=== PATIENT | female | born 1950 | race Caucasian/White ===

== ENCOUNTER 2017-09-19 13:35 | Emergency (ER) | END 2017-09-19 15:21 | disposition home or self-care (01) ==

== ENCOUNTER 2018-06-25 07:03 | Emergency (ER) | payer OTHER ==
[~2018-06-25] VITALS: Ht 157.5 cm; Wt 80.5 kg
[~2018-06-25 07:03] MED LIST: ACET500C5 PO; CEPH500C PO; DOCU-144 PO
[2018-06-25 07:06] VITALS: Ht 157.5 cm; Wt 80.5 kg
[2018-06-25] MEDS ORDERED: CEFTRIAXONE 1 GM/50 ML (PMX) 50 ML IVPB STA (07:30)
[2018-06-25] MEDS ORDERED: SODIUM CHLORIDE 0.9% 1L BAG IV* STA (07:30)
--- NOTE | 2018-06-25 07:36 | ERD ---
ER Documentation Chief Complaint Chief Complaint abdominal pain x 3 days, vomiting, and fever HPI 67-year-old female history of hypertension, hyperlipidemia, osteoarthritis and gastritis presents to the ED complaining of a 3-week history of abdominal pain and 5-day history of fevers. Patient was in her usual state of health until 3 weeks ago when she began developing mild, pressure-like, nonradiating suprapubic and left lower quadrant pain with pressure on urinating but no dysuria, polyuria, hematuria or flank pain. 5 days ago began developing fevers which are worse at night with reductive cough and body aches. Nausea with multiple episodes of nonbloody, nonbilious emesis since yesterday. No hematemesis, hematochezia or melena. Denies shortness of breath, chest pain or palpitations. No headache, neck or back pain. No relieving or exacerbating factors. ROS All systems reviewed and are negative except as per history of present illness. Medications Home Meds Active Scripts Amoxicillin/Potassium Clav (Amox-Clav 875-125 mg Tablet) 875-125 mg Tab, 1 TAB PO BID for 10 Days, #20 TAB Prov:LEWIS ROMERO MD 06/25/18 Acetaminophen* (Tylophen*) 500 Mg Capsule, 1 CAP PO Q6H PRN for PAIN AND OR ELEVATED TEMP, #15 CAP Prov:NADER MANZANO MD 09/19/17 Cephalexin* (Cephalexin*) 500 Mg Capsule, 500 MG PO Q6 for 5 Days, #20 CAP Prov:NADER MANZANO MD 09/19/17 Docusate Sodium* (Colace*) 100 Mg Capsule, 100 MG PO BID, #30 CAP Prov:NADER MANZANO MD 09/19/17 Allergies Allergies: Coded Allergies: No Known Allergy (Unverified , 09/22/13) PMhx/Soc History of Surgery: Yes (CERVICAL SX,HYSTERECTOMY , R HIP SX, LEFT KNEE SX) Anesthesia Reaction: No Hx Neurological Disorder: No Hx Respiratory Disorders: No Hx Cardiac Disorders: Yes (Hypertension) Hx Psychiatric Problems: No Hx Miscellaneous Medical Probl: Yes (Arthritis, gastritis, hyperlipidemia) Hx Alcohol Use: No Hx Substance Use: No Hx Tobacco Use: No FmHx No cancer, stroke or diabetes Physical Exam Vitals Vital Signs Date Temp Pulse Resp B/P (MAP) Pulse Ox O2 O2 Flow FiO2 Time Delivery Rate 06/25/18 98.1 85 18 130/65 99 Room Air 10:17 (86) 06/25/18 102.4 92 16 206/93 96 07:06 (130) Physical Exam Const: Moderate distress. Head: Atraumatic Eyes: Normal Conjunctiva ENT: Normal External Ears, Nose and Mouth. Pharynx is clear without erythema or exudate. Neck: Full range of motion. No meningismus. Resp: Breath sounds are equal and clear to auscultation bilaterally Cardio: Tachycardic, regular rate and rhythm, no murmurs Abd: Soft, mild left lower quadrant tenderness but no rebound or guarding. Non distended. Normal bowel sounds Skin: No petechiae or rashes Back: No midline or flank tenderness Ext: No cyanosis, or edema Neur: Awake and alert. No focal deficit Psych: Normal Mood and Affect Result Diagram: 06/25/18 0742 06/25/18 0742 Results 24 hrs Laboratory Tests Test 06/25/18 07:42 06/25/18 07:44 White Blood Count 9.0 10^3/ul Red Blood Count 3.97 10^6/ul Hemoglobin 11.4 g/dl Hematocrit 35.1 % Mean Corpuscular Volume 88.4 fl Mean Corpuscular Hemoglobin 28.7 pg Mean Corpuscular Hemoglobin Concent 32.5 g/dl Red Cell Distribution Width 13.1 % Platelet Count 237 10^3/UL Mean Platelet Volume 10.4 fl Immature Granulocytes % 0.300 % Neutrophils % 73.9 % Lymphocytes % 19.5 % Monocytes % 5.1 % Eosinophils % 0.8 % Basophils % 0.4 % Nucleated Red Blood Cells % 0.0 /100WBC Immature Granulocytes # 0.030 10^3/ul Neutrophils # 6.6 10^3/ul Lymphocytes # 1.8 10^3/ul Monocytes # 0.5 10^3/ul Eosinophils # 0.1 10^3/ul Basophils # 0.0 10^3/ul Nucleated Red Blood Cells # 0.0 10^3/ul Prothrombin Time 12.3 Sec Prothrombin Time Ratio 1.0 INR International Normalized Ratio 0.90 Activated Partial Thromboplast Time 28.8 Sec Urine Color JARON Urine Clarity CLOUDY Urine pH 5.0 Urine Specific [place] 1.021 Urine Ketones NEGATIVE mg/dL Urine Nitrite NEGATIVE mg/dL Urine Bilirubin NEGATIVE mg/dL Urine Urobilinogen 2+ mg/dL Urine Leukocyte Esterase TRACE Joe/ul Urine Microscopic RBC 12 /HPF Urine Microscopic WBC 38 /HPF Urine Squamous Epithelial Cells MODERATE /HPF Urine Bacteria FEW /HPF Urine Mucus FEW /HPF Urine Hemoglobin 1+ mg/dL Urine Glucose NEGATIVE mg/dL Urine Total Protein 2+ mg/dl Sodium Level 143 mmol/L Potassium Level 3.7 mmol/L Chloride Level 105 mmol/L Carbon Dioxide Level 27 mmol/L Anion Gap 11 Blood Urea Nitrogen 10 mg/dl Creatinine 0.48 mg/dl Est Glomerular Filtrat Rate mL/min > 60 mL/min Glucose Level 138 mg/dl Calcium Level 9.3 mg/dl Total Bilirubin 0.7 mg/dl Direct Bilirubin 0.00 mg/dl Indirect Bilirubin 0.7 mg/dl Aspartate Amino Transf (AST/SGOT) 36 IU/L Alanine Aminotransferase (ALT/SGPT) 35 IU/L Alkaline Phosphatase 162 IU/L Troponin I < 0.012 ng/ml Total Protein 7.8 g/dl Albumin 4.2 g/dl Globulin 3.60 g/dl Albumin/Globulin Ratio 1.16 Lactic Acid Level 1.6 mmol/L Current Medications Medications Dose Sig/Jose Miguel Start Time Status Last (Trade) Ordered Route PRN Stop Time Admin Dose Reason Admin Sodium 2,420 ml BOLUS OVER 2 06/25/18 DC 06/25/18 Chloride HOURS STAT 07:30 07:56 (NS) IV* 06/25/18 07:33 Ceftriaxone 50 ml @ ONCE STAT 06/25/18 DC 06/25/18 Sodium 100 mls/hr IVPB 07:30 07:56 06/25/18 07:59 IV Flush 10 ml STK-MED 06/25/18 DC 06/25/18 (NS 10 ml) ONCE .ROUTE 08:55 09:22 06/25/18 08:56 Sodium 100 ml @ ud STK-MED 06/25/18 DC 06/25/18 Chloride ONCE .ROUTE 08:55 09:22 06/25/18 08:56 Iohexol 150 ml STK-MED 06/25/18 DC 06/25/18 (Omnipaque ONCE .ROUTE 08:55 09:23 300mg/ ml) 06/25/18 08:56 Procedures/MDM DOCUMENTS REVIEWED: ED nurse, prior records EKG: Time: 07:52. Sinus rhythm. Ventricular rate 85. No ectopy. Normal MA QRS. Nonspecific T wave changes. Right axis deviation. My Interpretation IMAGING: Chest AP portable: Mild cardiomegaly. Costophrenic angles are clear. No effusions or infiltrates. No mediastinal widening. My interpretation. PROCEDURE: CT abdomen and pelvis with contrast. CLINICAL INDICATION: Left lower quadrant abdominal pain TECHNIQUE: CT scan of the abdomen and pelvis without oral contrast was performed and is reconstructed at 2.5 mm contiguous axial intervals from the dome of the diaphragm to the inferior pubic rami.. The patient was scanned with intravenous contrast. Sagittal and coronal reformatted images were obtained from the axial source images. The calculated radiation dose measures 1102 mGy centimeters. The CTDI measures 19 mGy. Individualized dose optimization technique was used for the performance of this exam. This included 1. Automated exposure control. 2. Adjustment of the mA and / or kV according to the patient's size. 3. Use of iterative reconstructed technique. COMPARISON: CT abdomen pelvis September 19, 2017 FINDINGS: The lung bases are clear of any infiltrate or nodule. No effusion is seen. There is a hiatal hernia. The liver is of normal size, contour and attenuation with no mass or ductal dilatation. No gallstones are visualized. No splenic, adrenal or pancreatic abnormalities present. Kidneys enhance symmetrically and are of normal size and contour. No hydronephrosis, calculus or masses seen. Ureters are of normal course and caliber with no stone. No bladder mass or stone is present. Uterus is been removed. No adnexal masses seen. There is no aneurysm. No adenopathy is present. No bowel mass or obstruction is present. The appendix is normal. Scattered colonic diverticula are present. No phlegmon, ascites or pneumoperitoneum is visualized. Patient is status post right hip replacement. There is mild rotary levoscoliosis of the mid lumbar spine. IMPRESSION: No evidence of urolithiasis, obstructive uropathy, diverticulitis or appendicitis. Diverticulosis. Hiatal hernia. Status post right hip replacement. Rotary levoscoliosis lumbar spine. .David Grissom MD, MD Date Time Electronically viewed and signed by .David Grissom MD, MD on 06/25/2018 09:23 REEXAMINATION/REEVALUATION: Time: 10:30. Doing well. Tolerating POs. MEDICAL DECISION MAKIN-year-old female history of hypertension, hyperlipidemia, osteoarthritis and gastritis presents to the ED complaining of a 3-week history of abdominal pain and 5-day history of fevers. CBC reveals mild anemia but no leukocytosis or thrombocytopenia. Chemistry is negative for electrolyte abnormalities, renal insufficiency or hyperglycemia. Lactate is 1.6 mmol/L. Urinalysis significant for pyuria and a culture is pending. EKG reveals no evidence of ischemia or dysrhythmia. Troponin is negative. Chest x- ray reveals borderline cardiomegaly but no pneumonia or congestive heart failure. CT of the abdomen pelvis significant for hiatal hernia and divertic ulosis but no diverticulitis, appendicitis, bowel obstruction, mass, ascites or colitis. Multiple criteria for systemic inflammatory response syndrome including fever and tachycardia. Normal saline 30 cc/kg fluid boluses given and broad-spectrum antibiotics after cultures. No elevated lactate or criteria for severe sepsis or septic shock. Urinary tract infection but no CVA tenderness or pyelonephritis. Pain resolved, tolerating PO's. Stable for discharge with Augmentin, pending urine culture, antipyretics, precautionary instructions and outpatient follow-up as counseled. Counseled patient and family regarding diagnosis, diagnostic results and need for follow-up Departure Diagnosis: Primary Impression: Fever Fever type: unspecified Qualified Codes: R50.9 - Fever, unspecified Additional Impressions: Nonspecific syndrome suggestive of viral illness UTI (urinary tract infection) Urinary tract infection type: acute cystitis Hematuria presence: with hematuria Qualified Codes: N30.01 - Acute cystitis with hematuria Acute abdominal pain in left lower quadrant Condition: Stable LEWIS ROMERO MD Jun 25, 2018 07:36
[2018-06-25] MEDS ORDERED: SOD CHLORIDE 0.9% 100 ML ONE (08:55)
[2018-06-25] MEDS ORDERED: IOHEXOL 300MG/ML 150 ML BTL ONE (08:55)
[2018-06-25 10:17] VITALS: BP 130/65; PULSE 85; RESP 18
[2018-06-25] MEDS ORDERED: AMOX1TAB10 PO (10:37)
== END 2018-06-25 11:05 | disposition home or self-care (01) ==
LOC: E/R 07:03
DX: N30.01 Acute cystitis with hematuria (principal); I10 Essential (primary) hypertension
CPT/HCPCS: 36415; 71045; 74177; 80053; 81001; 83605; 84484; 85025; 85610; 85730; 87040; 87086; 87400; 93005; 96374; J0696; J7030; Q9967; Z7502; Z7610

== ENCOUNTER 2018-10-08 02:57 | Emergency (ER) | payer OTHER ==
[~2018-10-08] VITALS: Ht 152.4 cm; Wt 85.0 kg
[~2018-10-08 02:57] MED LIST changes: +AMOX1TAB10 PO
[2018-10-08 02:58] VITALS: Ht 152.4 cm; Wt 85.0 kg
[2018-10-08] MEDS ORDERED: OMEP20CA16 PO (04:08)
[2018-10-08] MEDS ORDERED: LISI10TA2 PO (04:08)
[2018-10-08] MEDS ORDERED: CHOL200056 PO (04:08)
[2018-10-08] MEDS ORDERED: ATOR40TA68 PO (04:08)
[2018-10-08] MEDS ORDERED: ONDANSETRON 4 MG INJ IV ONE (04:30)
[2018-10-08] MEDS ORDERED: morphine 4 MG/ML VIAL IV ONE (04:30)
[2018-10-08] MEDS ORDERED: IOHEXOL 300MG/ML 150 ML BTL ONE (05:25)
[2018-10-08] MEDS ORDERED: SOD CHLORIDE 0.9% 100 ML ONE (05:25)
[2018-10-08] MEDS ORDERED: IBUP-1542 PO (07:08)
--- NOTE | 2018-10-08 07:08 | ERD ---
ER Documentation Chief Complaint Chief Complaint MECHANICAL TRIP AND FALL DOWN STAIRS. HIT HEAD, HEMATOMA NOTED. HPI This is a 68-year-old female with a past medical history of hypertension, hyperlipidemia, GERD, polio in the past with chronic left leg deformity who presents after falling down a flight of stairs. The patient reportedly missed the first step and fell down approximately 14 subsequent steps. She landed on her left side and sustained bruises and hematomas to the left arm and left leg. She also hit her head and sustained a large hematoma to the right forehead. The patient does endorse a dull aching soreness to all of these regions. She is able to range all extremities fully without any significant pain. She did not lose consciousness. She denies any neck or back pain. She denies any chest pain or trouble breathing. She denies abdominal pain. The patient is ambulatory without significant difficulty. She denies saddle anesthesia. She denies incontinence or retention of urine or stool. She denies any focal deficits. She denies weakness or numbness or tingling to the face or extremities. ROS All systems reviewed and are negative except as per history of present illness. Medications Home Meds Active Scripts Acetaminophen* (Tylophen*) 500 Mg Capsule, 1 CAP PO Q6H PRN for PAIN AND OR ELEVATED TEMP, #15 CAP Prov:NADER MANZANO MD 09/19/17 Reported Medications Cholecalciferol (Vitamin D3) (Vitamin D-3) 2,000 Unit Tablet, 2000 UNIT PO DAILY for 90 Days, #90 10/08/18 Omeprazole* (Omeprazole*) 20 Mg Capsule.dr, 20 MG PO BID for 90 Days, #180 10/08/18 Atorvastatin* (Atorvastatin*) 40 Mg Tablet, 40 MG PO QHS for 90 Days, #90 10/08/18 Lisinopril* (Lisinopril*) 10 Mg Tablet, 10 MG PO DAILY for 60 Days, #60 10/08/18 Discontinued Scripts Amoxicillin/Potassium Clav (Amox-Clav 875-125 mg Tablet) 875-125 mg Tab, 1 TAB PO BID for 10 Days, #20 TAB Prov:LEWIS ROMERO MD 06/25/18 Cephalexin* (Cephalexin*) 500 Mg Capsule, 500 MG PO Q6 for 5 Days, #20 CAP Prov:NADER MANZANO MD 09/19/17 Docusate Sodium* (Colace*) 100 Mg Capsule, 100 MG PO BID, #30 CAP Prov:NADER MANZANO MD 09/19/17 Allergies Allergies: Coded Allergies: No Known Allergy (Unverified , 10/08/18) PMhx/Soc History of Surgery: Yes (CERVICAL SX,HYSTERECTOMY , R HIP SX, LEFT KNEE SX) Anesthesia Reaction: No Hx Neurological Disorder: No Hx Respiratory Disorders: No Hx Cardiac Disorders: Yes (Hypertension) Hx Psychiatric Problems: No Hx Miscellaneous Medical Probl: Yes (Arthritis, gastritis, hyperlipidemia) Hx Alcohol Use: No Hx Substance Use: No Hx Tobacco Use: No Smoking Status: Never smoker FmHx Family History: No diabetes Physical Exam Vitals Vital Signs Date Temp Pulse Resp B/P (MAP) Pulse Ox O2 O2 Flow FiO2 Time Delivery Rate 10/08/18 98.9 66 16 160/91 97 Room Air 06:30 (114) 10/08/18 66 14 146/85 97 Room Air 06:00 (105) 10/08/18 65 16 153/90 97 Room Air 04:00 (111) 10/08/18 98.9 70 16 165/87 95 02:58 (113) Physical Exam Const: No apparent distress, well-developed, well-nourished Head: Normocephalic, no anglin sign. Right forehead hematoma and ecchymoses. Eyes: Normal Conjunctiva. Extraocular movements intact. Pupils equal, round and reactive to light. No raccoon eyes. ENT: Normal External Ears, Nose and Mouth. No hemotympanum. Neck: No midline spinal tenderness. No step-offs or deformities. Full range of motion. No meningismus. Resp: Clear to auscultation bilaterally, No wheezes, rales or rhonchi Cardio: Regular rate and rhythm. No murmurs, rubs or gallops Abd: Soft, non tender, non distended. Normal bowel sounds Skin: No petechiae or rashes Back: No midline tenderness. No step-offs or deformities. No CVA tenderness Ext: No cyanosis, or edema. Hematoma to the left forearm and left lower leg. Neur: Awake and alert, oriented 4. Cranial nerves intact. No facial droop. Normal strength, sensation and coordination. Psych: Normal Mood and Affect Result Diagram: 10/08/18 0435 10/08/18 0435 Results 24 hrs Laboratory Tests Test 10/08/18 04:35 White Blood Count 10.0 10^3/ul Red Blood Count 3.98 10^6/ul Hemoglobin 11.5 g/dl Hematocrit 34.7 % Mean Corpuscular Volume 87.2 fl Mean Corpuscular Hemoglobin 28.9 pg Mean Corpuscular Hemoglobin Concent 33.1 g/dl Red Cell Distribution Width 12.8 % Platelet Count 237 10^3/UL Mean Platelet Volume 10.2 fl Immature Granulocytes % 0.300 % Neutrophils % 66.9 % Lymphocytes % 23.3 % Monocytes % 5.8 % Eosinophils % 3.1 % Basophils % 0.6 % Nucleated Red Blood Cells % 0.0 /100WBC Immature Granulocytes # 0.030 10^3/ul Neutrophils # 6.7 10^3/ul Lymphocytes # 2.3 10^3/ul Monocytes # 0.6 10^3/ul Eosinophils # 0.3 10^3/ul Basophils # 0.1 10^3/ul Nucleated Red Blood Cells # 0.0 10^3/ul Prothrombin Time 12.3 Sec Prothrombin Time Ratio 1.0 INR International Normalized Ratio 0.90 Activated Partial Thromboplast Time 27.2 Sec Sodium Level 143 mmol/L Potassium Level 4.2 mmol/L Chloride Level 108 mmol/L Carbon Dioxide Level 25 mmol/L Anion Gap 10 Blood Urea Nitrogen 18 mg/dl Creatinine 0.51 mg/dl Est Glomerular Filtrat Rate mL/min > 60 mL/min Glucose Level 145 mg/dl Calcium Level 9.1 mg/dl Ethyl Alcohol Level < 10.0 mg/dl Current Medications Medications Dose Sig/Jose Miguel Start Time Status Last (Trade) Ordered Route PRN Stop Time Admin Dose Reason Admin Morphine 4 mg ONCE ONCE 10/08/18 DC 10/08/18 Sulfate IV 04:30 10/08/18 04:51 (morphine) 04:31 Ondansetron 4 mg ONCE ONCE 10/08/18 DC 10/08/18 HCl (Zofran IV 04:30 10/08/18 04:51 Inj) 04:31 IV Flush 10 ml STK-MED 10/08/18 DC 10/08/18 (NS 10 ml) ONCE .ROUTE 05:25 10/08/18 05:39 05:26 Sodium 100 ml @ ud STK-MED 10/08/18 DC 10/08/18 Chloride ONCE .ROUTE 05:25 10/08/18 05:41 05:26 Iohexol 150 ml STK-MED 10/08/18 DC 10/08/18 (Omnipaque ONCE .ROUTE 05:25 10/08/18 05:41 300mg/ ml) 05:26 Procedures/[facility] The patient's presentation warrants further investigation. Previous medical records, if available, were reviewed. LABS The patient's laboratory testing was obtained and reviewed. No emergent treatment was required unless described below. CBC: Normocytic anemia, not emergent. No E/o systemic infection or thrombocytopenia Chemistry: No E/o severe acidosis or alkalosis or renal failure or diabetic ketoacidosis PT/INR: No E/o significant coagulopathy Tox: No E/o alcohol abuse. IMAGING Imaging and Radiology interpretation reviewed. CT Head FINDINGS: Mild motion related artifact. Anterior right frontal scalp soft tissue hematoma. No acute intracranial hemorrhage or extraaxial fluid collection is seen. There is no midline shift or mass effect. Bloom-white delineation is maintained. No identifiable acute or recent territorial infarct. Ventricular size and configuration are within normal limits. Partial opacification of the left sphenoid sinus, including mucosal thickening and small air-fluid level along with mild osseous sclerosis. Remaining visualized paranasal sinuses and mastoid air cells are clear. Intact calvarium. Of incidental note are two small round smoothly marginated ossific densities along the outer table of the left frontal calvarium at the vertex, suggesting the presence of osteomas, measuring up to 10 mm in diameter. IMPRESSION: Anterior right frontal scalp soft tissue hematoma. No acute int racranial sequela from trauma is seen at this time. Left sphenoid sinus disease including air-fluid level along with osseous sclerosis, which may be of mixed chronicity. This exam could serve as a baseline for follow up after treatment. Electronically viewed and signed by Pete Pandey Physician on 10/08/2018 05:49 CT C-Spine FINDINGS: There is straightened lordosis of the cervical spine compatible with muscular spasm or sprain. No prevertebral soft tissue swelling is present. No vertebral body subluxation is seen. No fracture is evident. C2-3: The disc is normal in height. No significant disk bulge or protrusion is evident. There is no central canal stenosis or foraminal narrowing. C3-4: The disc is normal in height. No significant disk bulge or protrusion is evident. There is no central canal stenosis or foraminal narrowing. C4-5: The disc is normal in height. No significant disk bulge or protrusion is evident. There is no central canal stenosis or foraminal narrowing. C5-6: There is moderate loss of height of the disc. No significant disk bulge or protrusion is evident. There is no central canal stenosis . There is mild right- sided foraminal narrowing. C6-7: The disc is normal in height. No significant disk bulge or protrusion is evident. There is no central canal stenosis or foraminal narrowing. C7-T1: The disc is normal in height. No significant disk bulge or protrusion is evident. There is no central canal stenosis or foraminal narrowing. IMPRESSION: No fracture or step-off. C5-C6 degenerative disc disease with mild right foraminal stenosis. No central stenosis or disc herniation. Electronically viewed and signed by .David Grissom MD, MD on 10/08/2018 05:49 CT Chest/Abd/Pelvis FINDINGS: CT chest: There is no lung contusion. No infiltrate, mass or nodule is present. No hemothorax, pneumothorax or pleural effusion is detected. There is no med iastinal hemorrhage. Thoracic aorta appears normal with no dissection or pseudoaneurysm. No hilar or mediastinal adenopathy or mass is present. There is no chest wall contusion. No fractures are seen. There is a hiatal hernia. CT abdomen and pelvis: The liver is of normal size, contour and attenuation with no mass or intrahepatic ductal dilatation. Gallbladder is absent. No splenic, adrenal or pancreatic abnormality is present. There is no evidence of hepatic or splenic laceration or contusion. Kidneys enhance symmetrically. No hydronephrosis, calculus or mass is seen. There is no renal laceration or contusion and there is no evidence of perinephric or pararenal hemorrhage. Ureters are of normal course and caliber with no stone. No bladder mass or stone is seen. Prostate and seminal vesicles appear normal. The aorta is normal with no dissection. There is no retroperitoneal or intraperitoneal hemorrhage. No adenopathy is identified. There is no evidence of bowel injury. No bowel mass or obstruction is present. There is no phlegmon, ascites or pneumoperitoneum. No fractures are seen. There is mild rotary levoscoliosis centered on L3. The patient is post right hip replacement. There is no abdominal or pelvic body wall soft tissue contusion. IMPRESSION: 1. No lung contusion, hemothorax, pneumothorax or mediastinal hemorrhage. 2. No visceral injury, intraperitoneal or retroperitoneal hemorrhage. 3. No fracture. No soft tissue contusion. 4. Hiatal hernia. 5. Nonvisualization gallbladder. Clinical correlation suggested. 6. Status post right hip replacement. 7. Mild rotary levoscoliosis centered on L3. Electronically viewed and signed by .David Grissom MD, on 10/08/2018 05:54 XR L Humerus FINDINGS: No evidence of fractures or dislocations. Bony mineralization is nor mal. No focal bony blastic or lytic lesions. The soft tissues are unremarkable. IMPRESSION: No evidence of acute fractures or osseous malalignment. Electronically viewed and signed by Physician Rose Mary on 10/08/2018 05:09 XR L Forearm FINDINGS: No evidence acute fractures or dislocations. The bony mineralization is normal. No focal bony blastic or lytic lesions. Soft tissues are unremarka ble. No evidence of a left elbow joint effusion. IMPRESSION: No acute fractures or dislocations. Electronically viewed and signed by Physician Rose Mary on 10/08/2018 05:10 XR L Knee FINDINGS: There is a total left knee prosthesis in place without dislocation or loosening. No acute fractures. No focal bony blastic or lytic lesions. No evidence left knee joint effusion. Soft tissues are unremarkable. IMPRESSION: Unremarkable total left knee prosthesis. No acute fractures malalignment or joint effusion. Electronically viewed and signed by Physician Rose Mary on 10/08/2018 05:10 XR L Tib/Fib FINDINGS: There is a total left knee prosthesis in place that appears unremarkable without dislocation or loosening. No evidence acute fractures. The bones are osteopenic. No focal bony blastic or lytic lesions. No evidence of a left knee joint effusion. Soft tissues are unremarkable. IMPRESSION: Unremarkable total left knee prosthesis without dislocation loosening or joint effusion. No acute fractures. Electronically viewed and signed by Physician Rose Mary on 10/08/2018 05:08 TREATMENT/DISPOSITION The patient presents after a trauma. The patient fell down a flight of steps and required a full trauma work-up. The patient was evaluated fully without evidence of emergent posttraumatic pathology. The patient's CT imaging of the head and cervical spine are unremarkable. The patient has no focal deficits. I've low suspicion for intracranial pathology. I have low suspicion for cerebral ischemia or intracranial hemorrhage. The patient has no cervical spine tenderness. He can move his neck in all directions without any pain. As stated above, he does not have any focal deficits. He is not altered or intoxicated. He does not have any distracting injuries. The patient's cervical spine was clinically cleared using the Nexus C-spine rule. The patient does not have any saddle anesthesia. He has not been incontinent of urine or stool. He has not had any retention of urine or stool. I have low suspicion for spinal cord injury. The patient's CT of the chest does not reveal any evidence of pneumonia or pneumothorax or pulmonary edema or pleural effusion. The patient's cardiomediastinal silhouette is unremarkable. I do not suspect pericardial effusion. I do not see any mediastinal free air. I have low suspicion for esophageal tear or rupture. The patient does not have a widened mediastinum. The patient does not have chest pain radiating to the back. It does not have a sharp or tearing quality. I have low suspicion for thoracic aortic aneurysm or rupture or dissection. The patient's symptoms are not consistent with pulmonary embolism. The patient CT of the abdomen did not reveal any acute posttraumatic intra- abdominal pathology. The patient's vital signs are unremarkable. I low suspicion for hepatic or splenic or renal trauma. The patient does not have any GI or urinary bleeding. I decreased suspicion for intestinal injury. I have low suspicion for urethral injury. The patient does have bruising and hematomas to the left arm and leg. X-rays were performed without evidence of emergent pathology. I have low suspicion for extremity injury. There is no evidence of any penetrating injuries. The patient was treated with morphine for symptom control. DISCHARGE Upon reevaluation of the patient, symptoms have improved. No emergent diagnoses were identified. At this time, I feel that the patient stable for discharge. The patient was instructed to follow-up with a primary care physician in 1-3 days. The patient will be given strict precautions with which to return to the emergency department. Prescriptions: Ibuprofen The patient's blood pressure was elevated at greater than 120/80 while in the emergency department. The patient was otherwise stable with no evidence of hypertensive urgency or emergency. The patient does not require admission for blood pressure control. I have discussed with the patient the risks of hypertension. I have instructed the patient to return to the ER for any new or worsening symptoms including chest pain, shortness of breath, headache, blurred vision, confusion, nausea, vomiting or LOC. I have advised the patient to follow up with the primary care physician for outpatient monitoring and treatment for hypertension in 1-3 days. Disclaimer: Inadvertent spelling and grammatical errors are likely due to EHR/dictation software use and do not reflect on the overall quality of patient care. Note that the electronic time recorded on this note does not necessarily reflect the actual time of the patient encounter. Departure Diagnosis: Primary Impression: Fall with no significant injury Encounter type: initial encounter Qualified Codes: W19.XXXA - Unspecified fall, initial encounter Additional Impressions: Fall down stairs Encounter type: initial encounter Qualified Codes: W10.8XXA - Fall (on) (from) other stairs and steps, initial encounter Head trauma Encounter type: initial encounter Qualified Codes: S09.90XA - Unspecified injury of head, initial encounter Traumatic hematoma of left forearm Encounter type: initial encounter Qualified Codes: S50.12XA - Contusion of left forearm, initial encounter Hematoma of left lower extremity Encounter type: initial encounter Qualified Codes: S80.12XA - Contusion of left lower leg, initial encounter Condition: Stable Patient Instructions: Contusion, Lower Extremity, Contusion, Upper Extremity, Fall Prevention, Head Trauma (Traumatic Brain Injury) Additional Instructions: Thank you for for coming to [facility] for your care today. Please ask your nurse or provider if you have questions about your care today and do not leave until all your questions have been answered. Please use any medications given as directed and follow-up with your doctor (or the doctor you were referred to) in the next 1-3 days. If you do not have a primary care doctor you may follow up at the [facility] or [facility] (listed below). You may also use motrin and tylenol as needed for fever and/or pain unless instructed otherwise by your provider or nurse. Indications for more urgent follow-up have been discussed, but you may return to the Emergency Department at ANY time for any worrisome or worsening symptoms. If you have abdominal pain, please know that no test or exam you received is perfect and you should follow up within 8 hours for continued pain. If you had any imaging studies today, such as an X-Ray or CT Scan, these studies will be reviewed later by a radiologist. You will be called if there are important findings that were not identified today, so make sure the contact information you provided at registration is correct. If you received any narcotic pain control medicine today, such as Vicodin, Morphine or Dilaudid, your coordination and judgment may be affected for a number of hours. Please do not drive or operate heavy machinery, and you may want someone to assist you at home. If you were given a prescription for narcot ic medication, be aware that it is very addictive- use sparingly and only if necessary. PLEASE SEEK FURTHER EVALUATION AND MANAGEMENT AT YOUR DOCTORS OFFICE WITHIN THE NEXT 1-3 DAYS. IT IS YOUR RESPONSIBILITY TO MAKE AN APPOINTMENT FOR FOLOW-UP CARE. IF YOU HAVE A PRIMARY DOCTOR, PLEASE CALL THEIR OFFICE TO SCHEDULE AN APPOINTMENT FOR FOLLOW UP. IF YOU DO NOT HAVE A PRIMARY DOCTOR YOU CAN CALL OUR PHYSICIAN REFERRAL HOTLINE AT IF YOU CAN NOT AFFORD TO SEE A PHYSICIAN YOU CAN CHOSE FROM THE FOLLOWING [facility] CLINICS: [facility] [address] [facility] [address] [facility] [facility] [address] [facility] [address] [facility] [address] [facility] [facility]. [address] OLGA LIDIA VERGARA MD Oct 08, 2018 07:06
[2018-10-08 08:13] VITALS: BP 131/71; PULSE 71; RESP 16
== END 2018-10-08 08:13 | disposition home or self-care (01) ==
LOC: E/R 02:57
DX: S00.83XA Contusion of other part of head, initial encounter (principal); I10 Essential (primary) hypertension; S50.12XA Contusion of left forearm, initial encounter; S80.12XA Contusion of left lower leg, initial encounter; R40.2142 Coma scale, eyes open, spontaneous, at arrival to emergency department; R40.2362 Coma scale, best motor response, obeys commands, at arrival to emergency department; R40.2252 Coma scale, best verbal response, oriented, at arrival to emergency department; W10.8XXA Fall (on) (from) other stairs and steps, initial encounter; Y92.9 Unspecified place or not applicable
CPT/HCPCS: 70450; 71260; 72125; 73060; 73090; 73562; 73590; 74177; 80048; 80307; 85025; 85610; 85730; J2270; J2405; Q9967; Z7610; 36415; 96374; 96375